=== PATIENT | male | born 1940 | race Caucasian/White ===

== ENCOUNTER 2017-06-08 08:44 | Day surgery (SDC) | payer MEDICARE, BC ==
[2017-06-08] MEDS ORDERED: PROPOFOL 500 MG/50 ML EMU IV ONE (08:56)
[2017-06-08] MEDS ORDERED: GLYCOPYRROLATE 0.2 MG/ML SOL ONE (10:54)
[2017-06-08 11:35] VITALS: RESP 16
[2017-06-08 12:09] VITALS: BP 126/64; PULSE 50; TEMP 97; O2SAT 96
== END 2017-06-08 12:10 | disposition home or self-care (01) | DRG 951 ==
LOC: SURG 08:44
PROVIDERS: ATTEND Surgery
DX: Z12.11 Encounter for screening for malignant neoplasm of colon (principal); D12.2 Benign neoplasm of ascending colon; K57.30 Diverticulosis of large intestine without perforation or abscess without bleeding; Z86.010 Personal history of colon polyps
CPT/HCPCS: J7643; J2704

== ENCOUNTER 2018-12-28 16:19 | Emergency (ER) | payer BC, MEDICARE ==
[2018-12-28] MEDS ORDERED: MORPHINE SULFATE 10 MG/ML SOL IV ONE (16:45)
[2018-12-28] MEDS ORDERED: CEFTRIAXONE 1 GM PDS 1 GM in SODIUM CHLORIDE 0.9% 50 ML 50 ML IV ONE (16:45)
[2018-12-28 17:00] LABS: BASOPHILS % (AUTO) 1 % (0-3); EOSINOPHILS % (AUTO) 3 % (0-9); HEMATOCRIT 48 % (39-53); HEMOGLOBIN 15.8 gm/dl (13.5-17.7); LYMPHOCYTES % (AUTO) 32.9 % (10-50); MEAN CORPUSCULAR HGB CONC 32.8 gm/dl (32.0-36.0); MEAN CORPUSCULAR VOLUME 92 fL (80-100); MONOCYTES % (AUTO) 11.8 % (0-12); NEUTROPHILS % (AUTO) 52.1 % (37-80)
[2018-12-28 17:13] LABS: CALCIUM 9.4 mg/dl (8.5-10.1); CARBON DIOXIDE 30.7 mEq/L (21-32); CREATININE 0.95 mg/dl (0.80-1.30); POTASSIUM 3.3 mMol/L (3.5-5.1)
[2018-12-28] MEDS ORDERED: LIDOCAINE HCL 1% MPF 30 SOL ONE (17:16)
[2018-12-28] MEDS ORDERED: TDAP VACCINE 0.5 ML SUS IM ONE ×2 (18:20→18:29)
[2018-12-28] MEDS ORDERED: CEFTRIAXONE 1 GM PDS ONE (18:21)
[2018-12-28] MEDS ORDERED: MORPHINE SULFATE 10 MG/ML SOL ONE (18:29)
[2018-12-28] MEDS ORDERED: BACITRACIN 500 U/GM OIN TOP ONE ×2 (18:53→19:13)
[2018-12-28 20:08] VITALS: TEMP 98.3; O2SAT 97
[2018-12-28 20:58] VITALS: BP 186/98; PULSE 70; RESP 20
== END 2018-12-28 19:35 | disposition home or self-care (01) | DRG 605 ==
LOC: ED 16:19
DX: S41.152A Open bite of left upper arm, initial encounter (principal); W54.0XXA Bitten by dog, initial encounter
CPT/HCPCS: 12002; 73100; 80048; 85025; 90471; 90715; 96365; 96374; 99285; J0696; J2270; A6402; A6446; A9270-GY; J2001